=== PATIENT | male | born 2000 | race Caucasian/White ===

== ENCOUNTER 2020-05-10 21:03 | Emergency (ER) | payer OTHER | END 2020-05-11 01:13 | disposition left against medical advice (07) | LOC: ER1 21:03 | DX: M54.2 Cervicalgia (principal); Z53.21 Procedure and treatment not carried out due to patient leaving prior to being seen by health care provider ==

== ENCOUNTER 2020-08-04 23:55 | Emergency (ER) | payer SELFPAY ==
[2020-08-05] MEDS ORDERED: LODINE CAP 300300 MG PO (02:39)
== END 2020-08-05 02:50 | disposition home or self-care (01) ==
LOC: ER1 23:55
DX: R07.9 Chest pain, unspecified (principal); F17.290 Nicotine dependence, other tobacco product, uncomplicated
CPT/HCPCS: 71046; 93005; 99285

== ENCOUNTER 2020-09-30 11:40 | Emergency (ER) | payer OTHER ==
[~2020-09-30 11:40] MED LIST: LODINE CAP 300300 MG PO
[2020-09-30] MEDS ORDERED: AMOXICILLIN500 M1 PO (14:21)
[2020-09-30] MEDS ORDERED: IBUPROFEN600 MG PO (14:21)
== END 2020-09-30 14:30 | disposition home or self-care (01) ==
LOC: ER1 11:40
DX: U07.1 COVID-19 (principal); H66.91 Otitis media, unspecified, right ear; F17.290 Nicotine dependence, other tobacco product, uncomplicated
CPT/HCPCS: 0240U; 71045; 81001; 87081; 87880; 99283

== ENCOUNTER 2020-10-04 00:44 | Emergency (ER) | payer MEDICARE ==
[~2020-10-04 00:44] MED LIST changes: +AMOXICILLIN500 M1 PO; +IBUPROFEN600 MG PO
== END 2020-10-04 03:24 | disposition home or self-care (01) ==
LOC: ER1 00:44
DX: U07.1 COVID-19 (principal)
CPT/HCPCS: 71046; 93005; 99285